=== PATIENT | female | born 1950 | race Two or more races ===

== ENCOUNTER 2020-07-31 09:35 | Day surgery (SDC) | payer OTHER | END 2020-07-31 14:20 | disposition home or self-care (01) | LOC: AMB-ENDOS 09:35 → EDSTATUS 12:15 → AMB-ENDOS 14:20 | PROVIDERS: ATTEND Colon & Rectal Surgery | DX: K62.89 Other specified diseases of anus and rectum (principal); K64.8 Other hemorrhoids; Z12.11 Encounter for screening for malignant neoplasm of colon ==